=== PATIENT | female | born 1935 | race Caucasian/White ===

== ENCOUNTER 2018-11-11 13:21 | Inpatient (IN) ==
[2018-11-11] MEDS ORDERED: ZOFRAN IV PRN (15:36)
[2018-11-11] MEDS ORDERED: TYLENOL PO PRN (15:36)
--- NOTE | 2018-11-11 16:09 | EKG Report ---
Test Performed on : 11/11/2018 3:50:16 PM Test Reason : chest pain Blood Pressure : / mmHG Vent. Rate : 071 BPM Atrial Rate : 071 BPM P-R Int : 136 ms QRS Dur : 090 ms QT Int : 498 ms P-R-T Axes : -11 -25 -59 degrees QTc Int : 541 ms Normal sinus rhythm. T wave abnormality, consider lateral ischemia Prolonged QT Abnormal ECG No previous ECGs available Confirmed by Wily CARY, Giorgio Caballero ([id number]) on 11/11/2018 6:40:02 PM
--- NOTE | 2018-11-11 16:13 | Diag Imaging Result Doc PS360 ---
EXAM: CHEST-PORTABLE 11/11/2018 HISTORY: admission eval HF TECHNIQUE: AP portable upright at 1604 COMMENT: There is no evidence of acute cardiac or pulmonary disease. The blunting the costophrenic angles present on 11/10/2018 has resolved. IMPRESSION: Apparent resolution of bilateral pleural effusions. Electronically signed by Horacio Lamas 11/11/2018 4:10 PM
[2018-11-11 16:35] LABS: BASO# 0.02 X1000 (0.0-0.2); BASO% 0.4 % (0.0-0.8); EOS# 0.31 X1000 (0.0-0.7); EOS% 5.8 % (0.0-10.0); HEMATOCRIT 34.1 % (37.0-47.0); HEMOGLOBIN 11.2 g/dL (12.0-16.0); LYMPH# 0.83 X1000 (1.2-3.4); LYMPH% 15.5 % (20.5-51.1); MCH 31.3 PG (27-31); MCHC 32.8 g/dL (33-37); MCV 95.3 FL (81-99); MONO# 0.42 X1000 (0.11-0.59); MONO% 7.8 % (1.7-9.3); MPV 11.3 FL (7.4-10.4); NEUT# 3.79 X1000 (1.4-6.5); NEUT% 70.5 % (42.2-75.2); PLT 162 X1000 (130-400); RBC 3.58 XMIL (4.2-5.4); RDW 14.6 % (11.5-14.5); WBC 5.37 X1000 (4.8-10.8)
[2018-11-11 16:53] LABS: ALB/GLOB RATIO 1.2; ALBUMIN 3.7 g/dL (3.5-5.0); CREATININE 1.4 mg/dL (0.5-0.9); MAGNESIUM 1.9 mg/dL (1.5-2.7); TOTAL BILIRUBIN 0.63 mg/dL (0.20-1.00); TOTAL PROTEIN 6.7 g/dL (6.3-8.3)
[2018-11-11 17:20] LABS: ALLEN TEST YES; BE 0.1 mmoll (-3.0-3.0); BLOOD TYPE ARTERIAL; METHB 0.3 % (0.0-1.5); O2(CT) 16.7 mL/dL (15.0-23.0); O2HB 95.3 % (95.0-99.0); PCO2(98.6) 34 mmHg (35-45); PO2(98.6) 83 mmHg (60-100); SAMPLE BLOOD; SAO2 96.3 % (95.0-100.0); THB 12.4 g/dL (11.5-17.4); pH(98.6) 7.45 (7.35-7.45)
[2018-11-11] MEDS ORDERED: NS 1,000 ML IV SCH (17:30)
[2018-11-11 19:13] LABS: URINE SOURCE CLEAN CATCH
[2018-11-11 19:27] LABS: BILIRUBIN URINE NEGATIVE (NEGATIVE); BLOOD URINE TRACE (NEGATIVE); COLOR YELLOW; GLUCOSE URINE NEGATIVE (NEGATIVE); KETONE URINE NEGATIVE (NEGATIVE); LEUKOCYTES URINE TRACE (NEGATIVE); NITRITE URINE NEGATIVE (NEGATIVE); PROTEIN URINE 30 mg/dL (NEGATIVE); SP GRAVITY URINE 1.005; TURBIDITY URINE CLEAR (CLEAR); UROBILINOGEN URINE NORMAL (NORMAL)
[2018-11-11 19:29] LABS: UR EPITHELIAL CELLS <10 /HPF (<10); URINE BACTERIA NEGATIVE /HPF; URINE RBC <10 /HPF (<10); URINE WBC <10 /HPF (<10)
--- NOTE | 2018-11-11 19:56 | ECHO REPORT ---
ORDER DATE: 11/11/2018 INDICATION: CHF. M-MODE MEASUREMENTS: Left ventricle end diastole: 4.8. Left ventricle end systole: 3.3. Posterior wall: 1.0. Interventricular septum: 1.0. Left atrium: 4.4. Aortic diameter: 2.8. SUMMARY OF 2-DIMENSIONAL IMAGIN. Left ventricular systolic function appears to be normal. Ejection fraction grossly estimated at 60%. No wall motion abnormality noted. 2. The left atrium appears to be significantly enlarged. 3. The right ventricle and right atrium are probably mildly enlarged. 4. There is a very heavily calcified mitral annulus. 5. The mitral valve shows a mild degree of regurgitation. 6. Pulsed wave Doppler of mitral inflow shows "normal" E/A ratio. The ratio is 1.7. 7. Tissue Doppler of septal and lateral mitral annulus averages 12 cm. 8. There is a markedly elevated E/E' ratio, indicating elevation of left atrial pressure/diastolic dysfunction. There is predominance of the diastolic component on the PW Doppler of pulmonary venous flow. 9. The deceleration time of the E-wave is very short. That all suggests that the patient is in heart failure, especially with a significantly dilated left atrium. 10.The aortic valve is densely calcified, and it shows restricted opening. The maximum gradient across the aortic valve is 33 mmHg. Mean gradient is 14 mmHg. The valve area is calculated at 1.3 cm2. 11.Color flow mapping of the mitral valve indicates a moderate degree of regurgitation. 12.The tricuspid valve shows a mild degree of regurgitation. Pulmonary systolic pressure is estimated at 69 mmHg. The inferior vena cava appears to be within normal range. 13.The pulmonic valve appears to be unremarkable. 14.There are no masses. No thrombus, no pericardial effusion. SUMMARY: This study shows: 1. Preserved left ventricular systolic function with ejection fraction of 60%. 2. Moderate degree of aortic stenosis with a mean gradient of 14 mmHg, valve area of 1.3 cm2. 3. Markedly dilated left atrium. 4. Diastolic dysfunction with elevation of left atrial pressure. 5. Heavily calcified mitral annulus. 6. Pulmonary hypertension estimated at 69 mmHg. Clinical correlation is strongly recommended. cc: MD ELY David
--- NOTE | 2018-11-11 19:57 | Diag Imaging Result Doc PS360 ---
EXAM: LUNG SCAN / VQ HISTORY: r/o PE TECHNIQUE: Nuclear medicine ventilation/perfusion lung scan COMPARISON: Chest x-ray at 4:04 PM FINDINGS: 39.6 mCi DTPA used for the ventilation images. 5.8 mCi MAA given intravenously for the perfusion images. There are no wedge shaped perfusion defects. No ventilation perfusion mismatches. IMPRESSION: No pulmonary embolus. Electronically signed by Kashif Jeffries 11/11/2018 7:54 PM
--- NOTE | 2018-11-11 20:02 | HISTORY AND PHYSICAL ---
PRIMARY CARE PROVIDER: Dr. Olamide Ayon. CADDY PACKER: Fermin Ricci MD, at [facility]. CHIEF COMPLAINT: The patient was a direct admit from Dr. Olamide Ayon's office for dyspnea. HISTORY OF PRESENT ILLNESS: Ms. Parish is an 83-year-old female who carries a past medical history of coronary artery disease, status post OR in 03/2018 and again in 05/2018, per patient and family report she did not receive any stents, just angioplasty; dementia; UTI; hypertension; previous CVAs; chronic kidney disease; diabetes mellitus. Per patient report, since Thursday starting at 4 a.m. until about 10 a.m. she was having these episodes of where she felt her heart beating really fast. It would last for a few seconds and go away. There was no associated chest pain, nausea, vomiting or dizziness with this. Per her report, she had no shortness of breath, but per her son who is at bedside. He states that she has been short of breath since Thursday and has not been able to speak in full sentences. She has had no energy, no appetite, unsteady on her feet, irritable. She complained of a 10-pound weight gain since the 19 of October, abdominal fullness and 2 episodes of diarrhea today. Dr. Olamide Ayon reports a proBNP of greater than 20,000, an elevated D-dimer of 1.7 and an increased bilirubin of 1.79. A chest x-ray that was performed did not show any pulmonary edema or pneumonia. She had a creatinine of 1.2. Her EKG did show minimal prolonged Q-T in the office, but nothing else of any significant. She has been in rehab, twice in 2018, once after a UTI and once after she suffered an OR. She was admitted to [facility] both of those times. We will admit her and do a full pulmonary and cardiac workup, and consults appropriately. REVIEW OF SYSTEMS: Twelve-point review of systems was completed and negative except for those mentioned in the HPI. PAST MEDICAL HISTORY: 1. UTIs. 2. Dementia. 3. Coronary artery disease, status post OR in 03/2018 and 05/2018. She did not receive any stenting. 4. Diabetes mellitus. 5. Hypertension. 6. Chronic kidney disease. 7. CVAs. SOCIAL HISTORY: She lives with family. No alcohol, tobacco or illicit drug use. She has 2 sons and a grandson at the bedside. PHYSICAL EXAMINATION: VITAL SIGNS: Temperature is 98.1 degrees, heart rate 60, respirations 18, blood pressure 157/58, O2 is 93% on room air. GENERAL: Ms. Parish is a pleasant 83-year-old female who is currently sitting up in the bed in no acute distress. HEENT: Atraumatic, normocephalic. PERRL. NECK: Supple. Trachea midline. CV: S1, S2 were appreciated. She was positive for murmur. No gallops or rubs. PULMONARY: Bilateral breath sounds were clear to auscultation. GASTROINTESTINAL: Soft, nontender, nondistended. Positive bowel sounds x4 quadrants. EXTREMITIES: Trace edema. Bilateral pedal pulses are palpable. NEUROLOGIC: The patient is awake, alert, oriented x4. Follows commands. Moves all extremities. No focal deficits noted. She does have some apparent stuttering; however, per family this is her norm. LABORATORY DATA: From Dr. Olamide Ayon's office: ProBNP was greater than 20,000. D-dimer 1.7. Bilirubin 1.79. DIAGNOSTIC DATA: EKG showed minimal prolonged Q-T in the office. Chest x-ray was negative for pulmonary edema and pneumonia. We are currently pending our own labs and diagnostics. ASSESSMENT AND PLAN: 1. Dyspnea. We will rule out any congestive heart failure, pulmonary embolism and deep venous thrombosis. We will continue with a full cardiac and pulmonary workup. The patient does report a 10-pound weight gain since the 19 of October. She does have some lower extremity swelling. 2. Coronary artery disease, status post 2 myocardial infarctions in 2018. 3. Dementia. 4. Urinary tract infections in the past. We will check a urinalysis. 5. Diabetes mellitus. We will do pattern blood sugars, sliding scale insulin. Check a hemoglobin A1c in the a.m. 6. Further recommendations to follow physician evaluation, laboratory data and diagnostic data. We will also try to obtain records from [facility], as well as Dr. Olamide Ayon's office. Dictated by ALEXIS Fernandez for Andrade Reid MD cc: MD Olamide Adler MD
[2018-11-11] MEDS: HUMALOG SUBQ SCH (20:51)
[2018-11-12] MEDS: HUMALOG SUBQ SCH ×2 (06:34→11:51)
--- NOTE | 2018-11-12 07:23 | Diag Imaging Result Doc PS360 ---
EXAM: CHEST-PORTABLE 11/12/2018 HISTORY: fu TECHNIQUE: AP portable at 0608 COMMENT: The inspiration is less optimal than on 11/11/2018. Otherwise are has been no significant change. IMPRESSION: Stable chest. Electronically signed by Horacio Lamas 11/12/2018 7:21 AM
[2018-11-12 07:46] LABS: BASO# 0.02 X1000 (0.0-0.2); BASO% 0.4 % (0.0-0.8); EOS# 0.19 X1000 (0.0-0.7); EOS% 4.2 % (0.0-10.0); HEMATOCRIT 31.7 % (37.0-47.0); HEMOGLOBIN 10.5 g/dL (12.0-16.0); LYMPH# 0.73 X1000 (1.2-3.4); LYMPH% 16.1 % (20.5-51.1); MCH 31.3 PG (27-31); MCHC 33.1 g/dL (33-37); MCV 94.6 FL (81-99); MONO# 0.29 X1000 (0.11-0.59); MONO% 6.4 % (1.7-9.3); NEUT% 72.9 % (42.2-75.2); PLT 166 X1000 (130-400); RBC 3.35 XMIL (4.2-5.4); RDW 14.2 % (11.5-14.5); WBC 4.53 X1000 (4.8-10.8)
[2018-11-12 07:54] LABS: HEMOGLOBIN A1C 5.8 % (4.8-6.0)
[2018-11-12 07:58] LABS: ALB/GLOB RATIO 1.3; ALBUMIN 3.5 g/dL (3.5-5.0); CALCIUM 8.4 mg/dL (8.8-10.2); CREATININE 1.1 mg/dL (0.5-0.9); POTASSIUM 3.7 mmol/L (3.5-5.1); TOTAL BILIRUBIN 0.51 mg/dL (0.20-1.00); TOTAL PROTEIN 6.1 g/dL (6.3-8.3)
[2018-11-12 07:59] LABS: PTT 34.2 Seconds (22.3-41.8)
[2018-11-12 08:00] LABS: CHOLESTEROL 131 mg/dL (0-200); HDL 47 mg/dL (45-65); LDL 73 mg/dL; TRIGLYCERIDES 54 mg/dL (35-135); VLDL 11 mg/dL
[2018-11-12 08:13] LABS: FREE T4 1.2 ng/dL (0.93-1.70); TSH 1.94 uIUmL (0.27-4.20)
[2018-11-12 08:40] VITALS: BP 151/56
--- NOTE | 2018-11-12 09:27 | EKG Report ---
Test Performed on : 11/12/2018 09:14:47 AM Test Reason : Afib Blood Pressure : / mmHG Vent. Rate : 067 BPM Atrial Rate : 067 BPM P-R Int : 150 ms QRS Dur : 094 ms QT Int : 504 ms P-R-T Axes : 014 -27 017 degrees QTc Int : 532 ms Normal sinus rhythm. T wave abnormality, consider anterolateral ischemia Prolonged QT Abnormal ECG When compared with ECG of 11-NOV-2018 15:50, T wave inversion less evident in Lateral leads Confirmed by Wily CARY, Giorgio Caballero ([id number]) on 11/15/2018 11:29:21 AM
--- NOTE | 2018-11-13 16:08 | DISCHARGE SUMMARY ---
ADMISSION DATE: 11/11/2018 DISCHARGE DATE: 11/12/2018 DISPOSITION: Home. FOLLOW-UP: 1. Dr. Olamide Ayon. 2. Dr. Randall in [place] (prop setter). CONSULTATION DURING THIS ADMISSION: None. IMAGING STUDIES OF SIGNIFICANCE: An echocardiogram did show an ejection fraction of 60%, moderate degree of aortic stenosis. There was a diastolic dysfunction with elevation of left atrial pressure. There is also pulmonary hypertension with estimated pressure of 69. Lung V/Q scan was negative. A chest x-ray showed no significant abnormality. ADMISSION DIAGNOSES: 1. Dyspnea. 2. Coronary artery disease. 3. Recurrent urinary tract infections in the past. 4. Diabetes mellitus. DIAGNOSES AT TIME OF DISCHARGE: 1. Episode of extra heartbeat. Unsure if the patient has been having any form of arrhythmias. EKGs were unremarkable, and alarm security or surveillance monitor over 24 hours is unremarkable. Patient is advised to follow up with her prop setter Dr. Randall for outpatient Holter monitor evaluation. 2. History of coronary artery disease status post stents in the past. 3. Clinical volume depletion on presentation. 4. Acute on chronic renal failure improved. 5. Pulmonary hypertension with pulmonary artery systolic pressure of 69 mmHg. 6. Diastolic dysfunction noted on echo. DISCHARGE MEDICATIONS: 1. Allopurinol 100 mg p.o. daily. 2. Amlodipine 5 mg daily. 3. Atorvastatin 40 mg p.o. at bedtime. 4. Glipizide 5 mg daily. 5. Metformin 500 daily. 6. Alendronate 70 mg daily. 7. Lisinopril 20 mg daily. 8. Furosemide 20 mg daily after discussions with her primary care doctor and her prop setter. PRESENTING COMPLAINT: Dyspnea and heartbeat. HISTORY OF PRESENTING COMPLAINT: Ms. Parish is an 83-year-old female who was brought from Dr. Cooper's office because of dyspnea. Ms. Parish herself says that her main concern was that she felt her heart beating extremely hard, and has been going on every now and then, and that kind of scared her so she needed to be checked out. She went to her primary care doctor, and she was referred over here for further workup. Upon presenting to the hospital, Ms. Parish was admitted to the medical floor under tele monitoring. She looks slightly dry so she was slightly hydrated. Her PEG inhibitor and diuretics were withheld. During the hospital course, all her workup were unremarkable including a urine culture which was normal. Her creatinine which was 1.4, improved to 1.1, which seems to be her baseline. Hydration status significantly improved. I saw her today. Her 2 sons (twin boys were at the bedside with her, and they also think that mom is looking better). Ms. Parish herself said she wanted to be discharged because she feels well, and she is missing her puppy, so she wants to be discharged. I think she is clinically stable. She is safe for discharge. She has been advised to follow up with Dr. Randall for possible outpatient Holter monitor, and also for her cardiac management. She is advised also to follow up with Dr. Olamide Ayon. This morning her vital shows blood pressure is 151/56, pulse of 61, respirations 16, and temperature 97.5 degrees. The patient was saturating 100% on room air. Physical exam is unremarkable. Ms. Parish is being discharged in stable condition. All discharge instructions discussed with her, and the sons who were at the bedside at the time of the encounter. cc: MD Olamide Adler MD Dr. Barnes
--- NOTE | 2018-11-16 16:01 | Extremity Venous Study ---
PROCEDURE NAME: Venous U/S Bilateral Legs - 11/11/2018 REFERRING PHYSICIAN: Andrade Reid MD INTERPRETING PHYSICIAN: Abhishek Bates MD PRIVATE DUTY NURSE: Tim. INDICATION: The patient has elevated D-dimer. DESCRIPTION OF PROCEDURE: Bilateral lower extremity venous images were accomplished. The common femoral, superficial femoral, deep femoral, popliteal, posterior tibial, peroneal, and greater saphenous are imaged bilaterally. Doppler is used to evaluate the veins for spontaneity, phasicity, respiratory excursion, distal augmentation. All veins are compressible. No intraluminal clot is seen. Some reflux noted of the left common femoral vein. INTERPRETATION: 1. No evidence of deep or superficial venous thrombosis in the lower extremity veins identified. 2. Minimal reflux in noted the left common femoral vein. cc: Abhishek Bates MD
== END 2018-11-12 12:58 | disposition home or self-care (01) | DRG 641 ==
LOC: SUATTDRO 13:21 → DIRADM 13:21 → 3N 14:27
PROVIDERS: ATTEND Internal Medicine
CPT/HCPCS: 71010; 71020; 71045; 71046; 78582; 80053; 80061; 81001; 82550; 82607; 82746; 82805; 82948; 83036; 83735; 83880; 84439; 84443; 84484; 85025; 85379; 85610; 85730; 87088; 93005; 93010; 93306; 93970; A9270; A9539; A9540; J1815; J7030; XXXXX

== ENCOUNTER 2019-07-01 13:16 | Observation (INO) ==
[2019-07-01] MEDS ORDERED: ZOFRAN IV PRN (14:04)
[2019-07-01] MEDS ORDERED: TYLENOL PO PRN (14:04)
[2019-07-01 14:32] LABS: BASO# 0.04 X1000 (0.0-0.2); BASO% 0.4 % (0.0-0.8); EOS% 7.3 % (0.0-10.0); HEMATOCRIT 31.5 % (37.0-47.0); HEMOGLOBIN 10.1 g/dL (12.0-16.0); IMM GRAN# 0.02 X1000 (0.0-0.04); IMM GRAN% 0.2 % (0.0-0.5); LYMPH# 1.01 X1000 (1.2-3.4); LYMPH% 10.5 % (20.5-51.1); MCH 31.1 PG (27-31); MCHC 32.1 g/dL (33-37); MCV 96.9 FL (81-99); MONO# 0.54 X1000 (0.11-0.59); MONO% 5.6 % (1.7-9.3); MPV 11.9 FL (7.4-10.4); NEUT# 7.27 X1000 (1.4-6.5); PLT 197 X1000 (130-400); RBC 3.25 XMIL (4.2-5.4); WBC 9.58 X1000 (4.8-10.8)
[2019-07-01 14:53] LABS: CALCIUM 9.3 mg/dL (8.8-10.2); CREATININE 2.4 mg/dL (0.5-0.9); MAGNESIUM 2.2 mg/dL (1.5-2.7); POTASSIUM 4.9 mmol/L (3.5-5.1)
--- NOTE | 2019-07-01 15:05 | Diag Imaging Result Doc PS360 ---
EXAM: CHEST-PORTABLE 07/01/2019 HISTORY: Cough TECHNIQUE: Erect AP portable upright at 1453 COMMENT: There is no evidence of acute cardiac or pulmonary disease. Compared to 11/12/2018 there has been no significant change. IMPRESSION: No acute disease. Electronically signed by Horacio Lamas 07/01/2019 3:02 PM
[2019-07-01] MEDS: NS 1,000 ML IV SCH (15:57)
[2019-07-01] MEDS ORDERED: CALMOSEPTINE OINTMENT TOP PRN (16:12)
[2019-07-01 16:18] LABS: URINE SOURCE CLEAN CATCH
[2019-07-01 16:24] LABS: BILIRUBIN URINE NEGATIVE (NEGATIVE); BLOOD URINE SMALL (NEGATIVE); COLOR YELLOW; GLUCOSE URINE NEGATIVE (NEGATIVE); KETONE URINE NEGATIVE (NEGATIVE); LEUKOCYTES URINE LARGE (NEGATIVE); NITRITE URINE NEGATIVE (NEGATIVE); PROTEIN URINE TRACE mg/dL (NEGATIVE); SP GRAVITY URINE 1.009; TURBIDITY URINE HAZY (CLEAR); UROBILINOGEN URINE NORMAL (NORMAL)
[2019-07-01 16:25] LABS: UR EPITHELIAL CELLS <10 /HPF (<10); URINE BACTERIA NEGATIVE /HPF; URINE RBC <10 /HPF (<10); URINE WBC TNTC /HPF (<10)
[2019-07-01] MEDS: HUMALOG SUBQ SCH ×2 (18:45→22:35)
--- NOTE | 2019-07-01 20:02 | HISTORY AND PHYSICAL ---
CHIEF COMPLAINT: Abnormal labs from primary care physician being admitted as a direct admit. HISTORY OF PRESENTING ILLNESS: This is an 84-year-old female who presents to [facility] as a direct admit from her primary care physician's office after she had some labs drawn yesterday that showed that her creatinine was 2.8 with a baseline normally around 1.3 to 1.7. In the office she was felt to have had a urinary tract infection so she is being admitted as a direct admit for further evaluation and treatment. PAST MEDICAL HISTORY: Frequent UTIs, dementia, coronary artery disease status post NC x2, diabetes type 2, hypertension, chronic kidney disease, CVA, diastolic congestive heart failure and moderate aortic stenosis. PAST SURGICAL HISTORY: Of a hysterectomy, cholecystectomy and appendectomy. FAMILY HISTORY: Reviewed and noncontributory. SOCIAL HISTORY: She currently lives with family. Denied any tobacco, alcohol or illicit drug use. ALLERGIES: To penicillin and sulfa. HOME MEDICATIONS: A current list will need to be obtained, reconciled, reviewed and restarted as appropriate. Will place an order for nursing to update and confirm home medications. LABORATORY DATA: We will obtain a CBC, BMP, magnesium, TSH, free T4, UA with reflex culture now and review when resulted. REVIEW OF SYSTEMS: She denied any fever, chills, blurred vision, dizziness, chest pain, coughing, shortness of breath, denied any abdominal pain, constipation, diarrhea. She did complain of some mild burning and hurting with urination and some frequency. PHYSICAL EXAMINATION: On arrival she had a temperature of 97.7 degrees, pulse 70, respirations 16, blood pressure 143/57, saturating 95% on 2 L. GENERAL: This is an 84-year-old female who is lying in the bed. Answers questions appropriately. HEENT: Normocephalic, atraumatic. Normal ENT inspection. Oropharynx and nares are clear. Pupils are equal, round, reactive to light, accommodation. Extraocular movements are intact. NECK: Normal inspection, normal range of motion. LUNGS: Clear to auscultation bilaterally with equal lung expansion and chest wall movement. Uses O2 at home at 2 L via nasal cannula continuously. HEART: Regular rate and rhythm. No murmurs, rubs, or gallops. ABDOMEN: Soft, nontender, nondistended. Bowel sounds are present x4 quadrants. MUSCULOSKELETAL: She has 5/5 strength x4 extremities. NEUROLOGICAL: The cranial nerves 2-12 appear grossly intact. ASSESSMENT: 1. Acute on chronic kidney disease. 2. Possible urinary tract infection per primary care physician. 3. Diabetes type 2. 4. Coronary artery disease history of. PLAN: She is being admitted to the medical unit placed on telemetry O2 at 2 L continuously which is her home dose, diabetic diet. SCDs for DVT prophylaxis. Will check a CBC, BMP, TSH, free T4, magnesium level now. We will place on normal saline at 75 mL an hour. We will check a urine with reflex culture, place on pattern blood sugars with sliding scale insulin. We will need to update and confirm home medications and restart as appropriate. Further orders after seen by attending. Dictated by ALEXIS Tran for Rashad Head MD cc: Olamide Ayon MD
[2019-07-02] MEDS: HUMALOG SUBQ SCH ×4 (06:19→21:32)
[2019-07-02 07:52] LABS: CALCIUM 9.1 mg/dL (8.8-10.2); CREATININE 2.2 mg/dL (0.5-0.9); POTASSIUM 4.9 mmol/L (3.5-5.1)
[2019-07-02 07:58] LABS: BASO# 0.07 X1000 (0.0-0.2); BASO% 1.1 % (0.0-0.8); EOS# 0.73 X1000 (0.0-0.7); EOS% 11.2 % (0.0-10.0); HEMOGLOBIN 8.2 g/dL (12.0-16.0); LYMPH# 0.92 X1000 (1.2-3.4); LYMPH% 14.1 % (20.5-51.1); MCH 30.9 PG (27-31); MCHC 31.5 g/dL (33-37); MCV 98.1 FL (81-99); MONO# 0.35 X1000 (0.11-0.59); MONO% 5.4 % (1.7-9.3); MPV 12.2 FL (7.4-10.4); NEUT# 4.44 X1000 (1.4-6.5); NEUT% 68.2 % (42.2-75.2); PLT 176 X1000 (130-400); RBC 2.65 XMIL (4.2-5.4); RDW 15.1 % (11.5-14.5); WBC 6.51 X1000 (4.8-10.8)
[2019-07-02] MEDS: VITAMIN D PO SCH (09:04)
[2019-07-02] MEDS: ASPIRIN EC PO SCH (09:05)
[2019-07-02] MEDS: NORVASC PO SCH (09:05)
[2019-07-02] MEDS ORDERED: ROCEPHIN 1 GM in NS 50 ML IV SCH (14:45)
[2019-07-02] MEDS: NS 1,000 ML IV SCH ×3 (14:48→21:33)
--- NOTE | 2019-07-02 16:25 | PROGRESS NOTE ---
DATE: 07/02/2019 INTERVAL HISTORY: No acute events overnight. SUBJECTIVE: Multiple family members at bedside. Ms. Parish is feeling fine. She wanted to go home. I discussed with her about abnormal kidney function, potential etiologies, and I answered all of her questions. Ms. Parish denies any chest pain, shortness of breath, nausea, vomiting, abdominal pain. She denies any diarrhea or constipation or burning micturition. VITAL SIGNS: Currently, temperature 97.5 degrees, pulse 60, respiratory rate 14, blood pressure 129/41, saturating 100% on 2 L nasal cannula. PHYSICAL EXAMINATION: General: Not in any acute distress. HEENT: Oral cavity is moist. Lungs: Air entry bilaterally equal. No wheeze, rhonchi, or crackles. Cardiovascular: S1, S2 normal. Regular. No murmur or gallop. Abdomen: Soft, nontender. Extremities: Mild lower extremity edema. Neurologic: She is alert, oriented, answering questions appropriately. LABS: Suggestive of normocytic anemia, normal platelet count. She has improvement in her BUN and creatinine. Her blood glucose is in acceptable range. MICROBIOLOGY: Blood cultures are in lab. Urine culture has not shown any growth. Chest x-ray on presentation had no acute disease. ASSESSMENT AND PLAN: 1. Acute on chronic kidney disease stage 3. Her baseline creatinine is around 1.5 which was elevated to 2.8 when she presented to the hospital as a direct admit. This could be progression of her chronic kidney disease. Use of Lasix at home as well as lisinopril could have exacerbated her kidney dysfunction. I am holding her Lasix and lisinopril and continuing gentle intravenous fluid resuscitation, and I will follow up with [facility] tomorrow. 2. Acute cystourethritis. The patient was started on oral antibiotics which could be the reason why her urine culture is negative. I will continue her intravenous ceftriaxone and would advise her to complete total of 5 day course of antibiotics. I will also follow up with ultrasound retroperitoneal to rule out any postobstructive acute kidney. 3. History of coronary artery disease and myocardial infarction, CVA, essential hypertension. Continue her home aspirin, high-dose atorvastatin, amlodipine. DISPOSITION: I will monitor the patient inside the hospital as I await improvement in kidney function further. Plan of care discussed with her. Her questions have been answered. There are family members at bedside, and their questions have also been addressed. cc: Jeff Kinsey MD
--- NOTE | 2019-07-02 19:29 | Diag Imaging Result Doc PS360 ---
EXAM: US RENAL 2 (RETROPER) COMPLETE 07/02/2019 HISTORY: gogo/arf TECHNIQUE: Renal ultrasound COMMENT: The urinary bladder is unremarkable. The right kidney is 10.2 x 4.2 x 4.6 cm the left is 9.7 x 5.3 x 4.6 cm. There is no evidence of hydronephrosis or mass. IMPRESSION: No evidence of obstructive uropathy. Electronically signed by Horacio Lamas 07/02/2019 7:27 PM
[2019-07-02] MEDS ORDERED: LIPITOR PO SCH (21:00)
[2019-07-03] MEDS: HUMALOG SUBQ SCH ×2 (06:16→12:16)
[2019-07-03] MEDS: NS 1,000 ML IV SCH (08:39)
[2019-07-03] MEDS: ASPIRIN EC PO SCH (08:41)
[2019-07-03] MEDS: VITAMIN D PO SCH (08:41)
[2019-07-03] MEDS: NORVASC PO SCH (08:41)
[2019-07-03 08:44] LABS: CALCIUM 8.9 mg/dL (8.8-10.2); CREATININE 1.7 mg/dL (0.5-0.9)
[2019-07-03 08:48] LABS: BASO# 0.05 X1000 (0.0-0.2); BASO% 0.9 % (0.0-0.8); EOS# 0.74 X1000 (0.0-0.7); EOS% 13.1 % (0.0-10.0); HEMOGLOBIN 8.5 g/dL (12.0-16.0); LYMPH# 0.94 X1000 (1.2-3.4); LYMPH% 16.7 % (20.5-51.1); MCH 31.1 PG (27-31); MCHC 31.5 g/dL (33-37); MCV 98.9 FL (81-99); MONO# 0.44 X1000 (0.11-0.59); MONO% 7.8 % (1.7-9.3); NEUT# 3.46 X1000 (1.4-6.5); NEUT% 61.5 % (42.2-75.2); PLT 175 X1000 (130-400); RBC 2.73 XMIL (4.2-5.4); WBC 5.63 X1000 (4.8-10.8)
[2019-07-03 12:16] VITALS: BP 118/46
--- NOTE | 2019-07-03 16:13 | DISCHARGE SUMMARY ---
ADMISSION DATE: 07/01/2019 DISCHARGE DATE: 07/03/2019 DISCHARGE DISPOSITION: Back home. DISCHARGE CONDITION: Hemodynamically stable. She is denying any chest pain or shortness of breath. Her kidney function continues to improve. She was counseled about not taking lisinopril and Lasix until she sees her regular physician and gets an outpatient BMP. Her son is at bedside. His questions have been satisfactorily answered. DISCHARGE DIAGNOSES: 1. Acute kidney injury on chronic kidney disease stage 3, likely due to poor oral intake, intravascular volume depletion, use of lisinopril and Lasix. 2. Acute cystourethritis. 3. Normocytic anemia. OTHER DIAGNOSES: 1. History of [id number] diabetes mellitus type 2. 2. History of coronary artery disease and myocardial infarctions. 3. History of cerebrovascular accident 4. Essential hypertension. 5. History of chronic kidney disease stage 3. 6. History of moderate aortic stenosis. PHYSICAL EXAM ON DISCHARGE: Vital Signs: Temperature 98 degrees, pulse respiratory 21, blood pressure 108/46, saturating 100% on 2 L nasal cannula. General: Not in acute distress. HEENT: Oral cavity is moist. Respiratory: Air entry equal, no wheeze or crackles. Cardiovascular: S1, S2 normal. Systolic ejection murmur affected best heard in the right second intercostal space. No rub or gallop. Abdomen: Soft nontender. Extremities: Mild lower extremity edema. Neurologic: She was alert and oriented and answering all questions appropriately. SIGNIFICANT LABS: At the time of discharge hemoglobin of 8.5, platelets 175,000. BUN is 63, which improved from 90 on presentation and creatinine is 1.7 which improved from 2.4 on presentation. Her is her baseline creatinine is around 1.5. MICROBIOLOGY: Urine culture/blood culture did not have any growth. Chest x-ray on presentation did not have any acute disease. Renal ultrasound did not have any evidence of obstructive nephropathy. DISCHARGE MEDICATIONS: 1. Allopurinol 100 mg daily. 2. Aspirin, calcium carbonate, magnesium 325 mg daily. 3. Vitamin B12 5000 mcg daily. 4. Alendronate 70 mg every 7 days. 5. Glipizide 2.5 mg daily. 6. Keflex 250 mg b.i.d. for 3 more days. 7. Atorvastatin 40 mg at nighttime. 8. Amlodipine 5 mg daily. 9. Vitamin D3 1000 units oral daily. HOSPITAL COURSE SUMMARY: Ms. Parish is an 84-year-old lady who came to the hospital as a direct admit for abnormal labs. Apparently, her regular physician had routine labs drawn where she was found to have a creatinine of 2.8, whereas her baseline creatinine was around 1.5. Considering she had acute kidney injury on lab test, she was advised to be admitted directly to the hospital. Apparently, she was also diagnosed with acute urinary tract infection and was being treated outpatient with oral antibiotics. Ms. Toney did have prior history of frequent UTIs, dementia, coronary artery disease and chronic kidney disease. On arrival to the hospital, she was found to have temperature of 97.7 degrees, pulse of 70, blood pressure of 140/57, and she was saturating 100% on nasal cannula. She was started on intravenous fluid resuscitation considering she appeared clinically volume depleted, likely due to poor oral intake. Her home lisinopril for hypertension as well as furosemide for chronic diastolic congestive heart failure where health. With intravenous fluid resuscitation within 48 hours her kidney function started improving and her creatinine decreased from 2.4 on presentation to 1.7. The patient was tolerating oral diet well and she was advised to continue to and encouraged to have oral diet. It was decided to discharge her. She was provided detailed discharge instructions about following up with regular physician within a week and getting a repeat kidney function test and electrolytes done. She was advised to have a discussion with her regular physician about resuming her lisinopril or Lasix as tolerated, which she and her son understood More than 30 minutes of time was spent in discharging this patient. Plan of care extensively discussed with the patient and her son at bedside. All of their questions were satisfactorily answered. cc: Jeff Kinsey MD
== END 2019-07-03 14:45 | disposition home or self-care (01) ==
LOC: DIRADM 13:16 → INTOOBSV 13:16 → SUATTDRO 13:16 → EDIPHOLD 13:21 → 3N 15:40
PROVIDERS: ATTEND Internal Medicine